=== PATIENT | female | born 1995 | race Caucasian/White ===

== ENCOUNTER 2018-09-10 10:46 | Outpatient (CLI) | payer BC | END 2018-09-10 12:46 | disposition home or self-care (01) | LOC: ECT 10:46 | DX: F33.2 Major depressive disorder, recurrent severe without psychotic features (principal); F41.0 Panic disorder [episodic paroxysmal anxiety]; F43.10 Post-traumatic stress disorder, unspecified; F34.1 Dysthymic disorder; Z98.84 Bariatric surgery status; Z79.899 Other long term (current) drug therapy; Z88.6 Allergy status to analgesic agent ==

== ENCOUNTER 2018-09-19 07:20 | Outpatient (RCR) | payer BC ==
[~2018-09-19] VITALS: Ht 172.1 cm; Wt 65.3 kg
[2018-09-19] MEDS ORDERED: Methohexital Sodium 500mg Vial IVP ONE ×2 (07:21)
[2018-09-19] MEDS ORDERED: Succinylcholine 20mg/ml 10ml vial ONE ×2 (07:21)
[2018-09-19] MEDS ORDERED: NS 500ML ONE ×2 (07:21)
[2018-09-19 10:13] VITALS: BP 124/86
[2018-09-19 10:27] VITALS: BP 135/85
[2018-09-19 10:32] VITALS: BP 142/72
[2018-09-19 10:37] VITALS: BP 130/88
[2018-09-19 10:42] VITALS: BP 126/78
[2018-09-19 12:00] VITALS: BP 124/86
[2018-09-21 07:37] VITALS: BP 123/88
[2018-09-21 07:55] VITALS: BP 132/71
[2018-09-21 08:00] VITALS: BP 123/72
[2018-09-21 08:05] VITALS: BP 116/74
[2018-09-21 08:10] VITALS: BP 117/70
[2018-09-24] MEDS ORDERED: Succinylcholine 20mg/ml 10ml vial ONE (08:00)
[2018-09-24] MEDS ORDERED: NS 500ML ONE (08:00)
[2018-09-24] MEDS ORDERED: Methohexital Sodium Syr 100mg/10ml IVP ONE (08:00)
[2018-09-24 08:03] VITALS: BP 123/88
[2018-09-24 08:15] VITALS: BP 134/89
[2018-09-24 08:20] VITALS: BP 125/71
[2018-09-24 08:24] VITALS: BP 127/75
[2018-09-24 08:30] VITALS: BP 122/67
[2018-09-26] MEDS ORDERED: NS 500ML ONE (06:00)
[2018-09-26] MEDS ORDERED: Succinylcholine 20mg/ml 10ml vial ONE (06:00)
[2018-09-26] MEDS ORDERED: Methohexital Sodium Syr 100mg/10ml IVP ONE (06:00)
[2018-09-26 07:11] VITALS: BP 128/89
[2018-09-26 07:30] VITALS: BP 138/82
[2018-09-26 07:35] VITALS: BP 122/80
[2018-09-26 07:40] VITALS: BP 130/77
[2018-09-26 07:45] VITALS: BP 129/75
[2018-09-28] MEDS ORDERED: Succinylcholine 20mg/ml 10ml vial ONE (07:00)
[2018-09-28] MEDS ORDERED: Methohexital Sodium Syr 100mg/10ml IVP ONE (07:00)
[2018-09-28] MEDS ORDERED: NS 500ML ONE (07:00)
[2018-09-28 07:46] VITALS: BP 124/83
[2018-09-28 08:00] VITALS: BP 145/88
[2018-09-28 08:05] VITALS: BP 114/79
[2018-09-28 08:10] VITALS: BP 113/75
[2018-09-28 08:15] VITALS: BP 113/72
[2018-10-01 07:20] VITALS: BP 117/83
[2018-10-01] MEDS ORDERED: HYDROcodone/Acetamin 5/325 tab ORAL PRN (07:31)
[2018-10-01 07:35] VITALS: BP 129/76
[2018-10-01 07:40] VITALS: BP 122/70
[2018-10-01 07:45] VITALS: BP 121/72
[2018-10-01 07:50] VITALS: BP 115/75
[2018-10-01] MEDS ORDERED: NS 500ML ONE (09:00)
[2018-10-01] MEDS ORDERED: Methohexital Sodium Syr 100mg/10ml IVP ONE (09:00)
[2018-10-01] MEDS ORDERED: HYDROcodone/Acetamin 5/325 tab ONE (09:00)
[2018-10-01] MEDS ORDERED: Succinylcholine 20mg/ml 10ml vial ONE (09:00)
[2018-10-03 08:33] VITALS: BP 114/79
[2018-10-03] MEDS ORDERED: HYDROcodone/Acetamin 5/325 tab ORAL PRN (08:46)
[2018-10-03 08:50] VITALS: BP 130/71
[2018-10-03 08:55] VITALS: BP 117/67
[2018-10-03 09:00] VITALS: BP 115/72
[2018-10-03] MEDS ORDERED: Succinylcholine 20mg/ml 10ml vial ONE (09:00)
[2018-10-03] MEDS ORDERED: HYDROcodone/Acetamin 5/325 tab ONE (09:00)
[2018-10-03] MEDS ORDERED: NS 500ML ONE (09:00)
[2018-10-03] MEDS ORDERED: Methohexital Sodium Syr 100mg/10ml IVP ONE (09:00)
[2018-10-03 09:05] VITALS: BP 108/74
[2018-10-05] MEDS ORDERED: Succinylcholine 20mg/ml 10ml vial ONE (09:00)
[2018-10-05] MEDS ORDERED: Methohexital Sodium Syr 100mg/10ml IVP ONE (09:00)
[2018-10-05] MEDS ORDERED: NS 500ML ONE (09:00)
[2018-10-05] MEDS ORDERED: HYDROcodone/Acetamin 5/325 tab ONE (09:00)
[2018-10-05 09:48] VITALS: BP 113/79
[2018-10-05] MEDS ORDERED: HYDROcodone/Acetamin 5/325 tab ORAL PRN (10:02)
[2018-10-05 10:05] VITALS: BP 125/72
[2018-10-05 10:10] VITALS: BP 124/74
[2018-10-05 10:15] VITALS: BP 126/63
[2018-10-05 10:20] VITALS: BP 122/74
== END 2018-10-07 | disposition home or self-care (01) ==
LOC: ECT 07:20
DX: F33.2 Major depressive disorder, recurrent severe without psychotic features (principal); F34.1 Dysthymic disorder; F41.0 Panic disorder [episodic paroxysmal anxiety]; F43.10 Post-traumatic stress disorder, unspecified; M71.9 Bursopathy, unspecified; J30.9 Allergic rhinitis, unspecified; R25.1 Tremor, unspecified; M51.27 Other intervertebral disc displacement, lumbosacral region; Z98.84 Bariatric surgery status; G58.9 Mononeuropathy, unspecified
CPT/HCPCS: 90870; J0330; J3490; J7040

== ENCOUNTER 2018-10-08 10:41 | Outpatient (RCR) | payer BC ==
[~2018-10-08] VITALS: Ht 172.1 cm; Wt 65.3 kg
[2018-10-08 08:49] VITALS: BP 118/83
[2018-10-08 09:00] VITALS: BP 136/95
[2018-10-08 09:05] VITALS: BP 127/71
[2018-10-08 09:10] VITALS: BP 114/66
[2018-10-08 09:15] VITALS: BP 122/71
[~2018-10-08 10:41] MED LIST: HYDROcodone/Acetamin 5/325 tab ONE; HYDROcodone/Acetamin 5/325 tab ORAL PRN; Methohexital Sodium Syr 100mg/10ml IVP ONE; NS 500ML ONE; Succinylcholine 20mg/ml 10ml vial ONE
[2018-10-10] MEDS ORDERED: Methohexital Sodium Syr 100mg/10ml IVP ONE (07:00)
[2018-10-10] MEDS ORDERED: NS 500ML ONE (07:00)
[2018-10-10] MEDS ORDERED: HYDROcodone/Acetamin 5/325 tab ONE (07:00)
[2018-10-10] MEDS ORDERED: Succinylcholine 20mg/ml 10ml vial ONE (07:00)
[2018-10-10 10:00] VITALS: BP 113/72
[2018-10-10] MEDS ORDERED: HYDROcodone/Acetamin 5/325 tab ORAL PRN (10:14)
[2018-10-10 10:15] VITALS: BP 129/68
[2018-10-10 10:20] VITALS: BP 123/67
[2018-10-10 10:25] VITALS: BP 113/58
[2018-10-10 10:30] VITALS: BP 115/64
[2018-10-12 08:28] VITALS: BP 104/76
[2018-10-12 08:45] VITALS: BP 114/64
[2018-10-12] MEDS ORDERED: HYDROcodone/Acetamin 5/325 tab ORAL PRN (08:45)
[2018-10-12 08:50] VITALS: BP 104/61
[2018-10-12 08:55] VITALS: BP 110/72
[2018-10-12 09:00] VITALS: BP 106/59
[2018-10-12] MEDS ORDERED: Succinylcholine 20mg/ml 10ml vial ONE (10:00)
[2018-10-12] MEDS ORDERED: Methohexital Sodium Syr 100mg/10ml IVP ONE (10:00)
[2018-10-12] MEDS ORDERED: HYDROcodone/Acetamin 5/325 tab ONE (10:00)
[2018-10-15] MEDS ORDERED: Succinylcholine 20mg/ml 10ml vial ONE (06:00)
[2018-10-15] MEDS ORDERED: NS 500ML ONE (06:00)
[2018-10-15] MEDS ORDERED: Methohexital Sodium Syr 100mg/10ml IVP ONE (06:00)
[2018-10-15] MEDS ORDERED: HYDROcodone/Acetamin 5/325 tab ONE (06:00)
[2018-10-15 08:19] VITALS: BP 117/79
[2018-10-15 08:30] VITALS: BP 142/78
[2018-10-15] MEDS ORDERED: HYDROcodone/Acetamin 5/325 tab ORAL PRN (08:30)
[2018-10-15 08:35] VITALS: BP 140/77
[2018-10-15 08:40] VITALS: BP 131/71
[2018-10-15 08:45] VITALS: BP 123/81
[2018-10-19] MEDS ORDERED: HYDROcodone/Acetamin 5/325 tab ONE (08:00)
[2018-10-19] MEDS ORDERED: NS 500ML ONE (08:00)
[2018-10-19] MEDS ORDERED: Succinylcholine 20mg/ml 10ml vial ONE (08:00)
[2018-10-19] MEDS ORDERED: Methohexital Sodium Syr 100mg/10ml IVP ONE (08:00)
[2018-10-19 08:31] VITALS: BP 107/73
[2018-10-19 08:42] VITALS: BP 118/81
[2018-10-19] MEDS ORDERED: HYDROcodone/Acetamin 5/325 tab ORAL PRN (08:42)
[2018-10-19 08:47] VITALS: BP 124/73
[2018-10-19 08:52] VITALS: BP 112/61
[2018-10-19 08:57] VITALS: BP 91/47
[2018-10-22] MEDS ORDERED: Succinylcholine 20mg/ml 10ml vial ONE (10:00)
[2018-10-22] MEDS ORDERED: HYDROcodone/Acetamin 5/325 tab ONE (10:00)
[2018-10-22] MEDS ORDERED: Methohexital Sodium Syr 100mg/10ml IVP ONE (10:00)
[2018-10-22] MEDS ORDERED: NS 500ML ONE (10:00)
[2018-10-22 10:29] VITALS: BP 119/79
[2018-10-22] MEDS ORDERED: HYDROcodone/Acetamin 5/325 tab ORAL PRN (10:42)
[2018-10-22 10:45] VITALS: BP 129/78
[2018-10-22 10:50] VITALS: BP 130/63
[2018-10-22 10:55] VITALS: BP 134/69
[2018-10-22 11:00] VITALS: BP 132/69
[2018-10-26] MEDS ORDERED: Succinylcholine 20mg/ml 10ml vial ONE (06:00)
[2018-10-26] MEDS ORDERED: HYDROcodone/Acetamin 5/325 tab ONE (06:00)
[2018-10-26] MEDS ORDERED: Methohexital Sodium Syr 100mg/10ml IVP ONE (06:00)
[2018-10-26] MEDS ORDERED: NS 500ML ONE (06:00)
[2018-10-26] MEDS ORDERED: HYDROcodone/Acetamin 5/325 tab ORAL PRN (08:29)
[2018-10-26 08:30] VITALS: BP_SYST 114; BP_SYST 154; BP_DIAS 103; BP_DIAS 74
[2018-10-26 08:35] VITALS: BP 147/91
[2018-10-26 08:40] VITALS: BP 111/69
[2018-10-26 08:45] VITALS: BP 114/68
[2018-10-31 08:32] VITALS: BP 119/76
[2018-10-31] MEDS ORDERED: HYDROcodone/Acetamin 5/325 tab ORAL PRN (08:45)
[2018-10-31 08:46] VITALS: BP 120/69
[2018-10-31 08:51] VITALS: BP 106/71
[2018-10-31 08:56] VITALS: BP 108/52
[2018-10-31] MEDS ORDERED: NS 500ML ONE (09:00)
[2018-10-31] MEDS ORDERED: HYDROcodone/Acetamin 5/325 tab ONE (09:00)
[2018-10-31] MEDS ORDERED: Methohexital Sodium Syr 100mg/10ml IVP ONE (09:00)
[2018-10-31] MEDS ORDERED: Succinylcholine 20mg/ml 10ml vial ONE (09:00)
[2018-10-31 09:01] VITALS: BP 108/73
[2018-11-07] MEDS ORDERED: HYDROcodone/Acetamin 5/325 tab ONE (06:00)
[2018-11-07] MEDS ORDERED: Methohexital Sodium Syr 100mg/10ml IVP ONE (06:00)
[2018-11-07] MEDS ORDERED: Succinylcholine 20mg/ml 10ml vial ONE (06:00)
[2018-11-07] MEDS ORDERED: NS 500ML ONE (06:00)
[2018-11-07 10:35] VITALS: BP 119/79
[2018-11-07] MEDS ORDERED: HYDROcodone/Acetamin 5/325 tab ORAL PRN (10:47)
[2018-11-07 10:50] VITALS: BP 124/65
[2018-11-07 10:55] VITALS: BP 120/63
[2018-11-07 11:00] VITALS: BP 118/65
[2018-11-07 11:05] VITALS: BP 110/65
== END 2018-11-07 | disposition home or self-care (01) ==
LOC: ECT 10:41
DX: F33.2 Major depressive disorder, recurrent severe without psychotic features (principal)
CPT/HCPCS: 90870; J0330; J7040

== ENCOUNTER 2018-11-12 08:01 | Outpatient (RCR) | payer BC ==
[~2018-11-12] VITALS: Ht 170.2 cm; Wt 65.3 kg
[~2018-11-12 08:01] MED LIST changes: -HYDROcodone/Acetamin 5/325 tab ORAL PRN
[2018-11-12] MEDS ORDERED: Succinylcholine 20mg/ml 10ml vial ONE (08:02)
[2018-11-12] MEDS ORDERED: Methohexital Sodium Syr 100mg/10ml IVP ONE (08:02)
[2018-11-12] MEDS ORDERED: NS 500ML ONE (08:02)
[2018-11-12] MEDS ORDERED: HYDROcodone/Acetamin 5/325 tab ONE (08:02)
[2018-11-12 11:01] VITALS: BP 110/69
[2018-11-12] MEDS ORDERED: HYDROcodone/Acetamin 5/325 tab ORAL PRN (11:13)
[2018-11-12 11:15] VITALS: BP 112/66
[2018-11-12 11:20] VITALS: BP 105/64
[2018-11-12 11:25] VITALS: BP 101/63
[2018-11-12 11:30] VITALS: BP 108/58
[2018-11-19] MEDS ORDERED: HYDROcodone/Acetamin 5/325 tab ONE (06:00)
[2018-11-19] MEDS ORDERED: NS 500ML ONE (06:00)
[2018-11-19] MEDS ORDERED: Methohexital Sodium Syr 100mg/10ml IVP ONE (06:00)
[2018-11-19] MEDS ORDERED: Succinylcholine 20mg/ml 10ml vial ONE (06:00)
[2018-11-19 07:57] VITALS: BP 114/76
[2018-11-19] MEDS ORDERED: HYDROcodone/Acetamin 5/325 tab ORAL PRN (08:09)
[2018-11-19 08:10] VITALS: BP 121/68
[2018-11-19 08:15] VITALS: BP 117/69
[2018-11-19 08:20] VITALS: BP 112/69
[2018-11-19 08:25] VITALS: BP 116/71
[2018-11-28 10:03] VITALS: BP 111/75
[2018-11-28] MEDS ORDERED: HYDROcodone/Acetamin 5/325 tab ORAL PRN (10:14)
[2018-11-28 10:15] VITALS: BP 120/73
[2018-11-28 10:20] VITALS: BP 120/66
[2018-11-28 10:25] VITALS: BP 121/64
[2018-11-28 10:30] VITALS: BP 121/67
[2018-12-07] MEDS ORDERED: Methohexital Sodium Syr 100mg/10ml IVP ONE (06:00)
[2018-12-07] MEDS ORDERED: HYDROcodone/Acetamin 5/325 tab ONE (06:00)
[2018-12-07] MEDS ORDERED: Succinylcholine 20mg/ml 10ml vial ONE (06:00)
[2018-12-07] MEDS ORDERED: NS 500ML ONE (06:00)
[2018-12-07 08:49] VITALS: BP 112/70
[2018-12-07] MEDS ORDERED: HYDROcodone/Acetamin 5/325 tab ORAL PRN (09:06)
[2018-12-07 09:10] VITALS: BP 110/63
[2018-12-07 09:15] VITALS: BP 105/59
[2018-12-07 09:20] VITALS: BP 107/53
[2018-12-07 09:25] VITALS: BP 112/66
== END 2018-12-08 | disposition home or self-care (01) ==
LOC: ECT 08:01
DX: F33.2 Major depressive disorder, recurrent severe without psychotic features (principal)
CPT/HCPCS: 90870; J0330; J7040

== ENCOUNTER 2018-12-17 05:12 | Outpatient (RCR) | payer BC ==
[~2018-12-17] VITALS: Ht 170.2 cm; Wt 65.3 kg
[2018-12-17] MEDS ORDERED: Methohexital Sodium Syr 100mg/10ml IVP ONE (06:00)
[2018-12-17] MEDS ORDERED: Succinylcholine 20mg/ml 10ml vial ONE (06:00)
[2018-12-17] MEDS ORDERED: NS 500ML ONE (06:00)
[2018-12-17] MEDS ORDERED: HYDROcodone/Acetamin 5/325 tab ONE (06:00)
[2018-12-17 08:24] VITALS: BP 113/72
[2018-12-17 08:35] VITALS: BP 121/63
[2018-12-17] MEDS ORDERED: HYDROcodone/Acetamin 5/325 tab ORAL PRN (08:35)
[2018-12-17 08:40] VITALS: BP 116/62
[2018-12-17 08:45] VITALS: BP 110/58
[2018-12-17 08:50] VITALS: BP 105/72
[2018-12-31] MEDS ORDERED: Succinylcholine 20mg/ml 10ml vial ONE (06:00)
[2018-12-31] MEDS ORDERED: NS 500ML ONE (06:00)
[2018-12-31] MEDS ORDERED: Methohexital Sodium Syr 100mg/10ml IVP ONE (06:00)
[2018-12-31] MEDS ORDERED: HYDROcodone/Acetamin 5/325 tab ONE (06:00)
[2018-12-31 08:31] VITALS: BP 109/77
[2018-12-31] MEDS ORDERED: HYDROcodone/Acetamin 5/325 tab ORAL PRN (08:47)
[2018-12-31 08:50] VITALS: BP 109/77
[2018-12-31 08:55] VITALS: BP 109/77
[2018-12-31 09:00] VITALS: BP 109/77
[2018-12-31 09:05] VITALS: BP 110/69
== END 2019-01-07 | disposition home or self-care (01) ==
LOC: ECT 05:12
DX: F33.2 Major depressive disorder, recurrent severe without psychotic features (principal)
CPT/HCPCS: 90870; J0330; J7040

== ENCOUNTER 2019-01-14 12:19 | Outpatient (RCR) | payer BC ==
[~2019-01-14] VITALS: Ht 172 cm; Wt 65.3 kg
[2019-01-14 10:14] VITALS: BP 110/79
[2019-01-14 10:30] VITALS: BP 120/45
[2019-01-14 10:35] VITALS: BP 119/68
[2019-01-14 10:40] VITALS: BP 123/67
[2019-01-14 10:45] VITALS: BP 111/65
[~2019-01-14 12:19] MED LIST changes: -HYDROcodone/Acetamin 5/325 tab ONE; +HYDROcodone/Acetamin 5/325 tab ORAL PRN; -Methohexital Sodium Syr 100mg/10ml IVP ONE; -NS 500ML ONE; -Succinylcholine 20mg/ml 10ml vial ONE
[2019-01-14] MEDS ORDERED: Methohexital Sodium Syr 100mg/10ml IVP ONE (12:20)
[2019-01-14] MEDS ORDERED: HYDROcodone/Acetamin 5/325 tab ONE (12:20)
[2019-01-30] MEDS ORDERED: NS 500ML ONE (06:00)
[2019-01-30] MEDS ORDERED: HYDROcodone/Acetamin 5/325 tab ONE (06:00)
[2019-01-30] MEDS ORDERED: Methohexital Sodium Syr 100mg/10ml IVP ONE (06:00)
[2019-01-30] MEDS ORDERED: Succinylcholine 20mg/ml 10ml vial ONE (06:00)
[2019-01-30 10:23] VITALS: BP 110/62
[2019-01-30 10:35] VITALS: BP 116/53
[2019-01-30] MEDS ORDERED: HYDROcodone/Acetamin 5/325 tab ORAL PRN (10:35)
[2019-01-30 10:40] VITALS: BP 115/63
[2019-01-30 10:45] VITALS: BP 115/69
[2019-01-30 10:50] VITALS: BP 119/64
== END 2019-02-07 | disposition home or self-care (01) ==
LOC: ECT 12:19
DX: F33.2 Major depressive disorder, recurrent severe without psychotic features (principal)
CPT/HCPCS: 90870; J0330; J7040

== ENCOUNTER 2019-02-08 08:37 | Outpatient (RCR) | payer BC ==
[~2019-02-08] VITALS: Ht 170.2 cm; Wt 65.3 kg
[2019-02-08 08:00] VITALS: BP 116/69
[2019-02-08 08:15] VITALS: BP 115/66
[2019-02-08 08:20] VITALS: BP 110/63
[2019-02-08 08:25] VITALS: BP 109/66
[2019-02-08 08:30] VITALS: BP 113/65
[2019-02-08] MEDS ORDERED: NS 500ML ONE (08:38)
[2019-02-08] MEDS ORDERED: Methohexital Sodium Syr 100mg/10ml IVP ONE (08:38)
[2019-02-08] MEDS ORDERED: Succinylcholine 20mg/ml 10ml vial ONE (08:38)
[2019-02-08] MEDS ORDERED: HYDROcodone/Acetamin 5/325 tab ONE (08:38)
[2019-02-20] MEDS ORDERED: Methohexital Sodium Syr 100mg/10ml IVP ONE (06:00)
[2019-02-20] MEDS ORDERED: NS 500ML ONE (06:00)
[2019-02-20] MEDS ORDERED: Succinylcholine 20mg/ml 10ml vial ONE (06:00)
[2019-02-20] MEDS ORDERED: HYDROcodone/Acetamin 5/325 tab ONE (06:00)
[2019-02-20 08:48] VITALS: BP 113/70
[2019-02-20] MEDS ORDERED: HYDROcodone/Acetamin 5/325 tab ORAL PRN (09:03)
[2019-02-20 09:05] VITALS: BP 114/63
[2019-02-20 09:10] VITALS: BP 117/58
[2019-02-20 09:15] VITALS: BP 115/58
[2019-02-20 09:20] VITALS: BP 114/58
[2019-03-06 07:43] VITALS: BP 115/79
[2019-03-06] MEDS ORDERED: HYDROcodone/Acetamin 5/325 tab ORAL PRN (07:56)
[2019-03-06 08:00] VITALS: BP 118/66
[2019-03-06 08:05] VITALS: BP 111/57
[2019-03-06 08:10] VITALS: BP 112/68
[2019-03-06 08:15] VITALS: BP 117/62
[2019-03-06] MEDS ORDERED: HYDROcodone/Acetamin 5/325 tab ONE (09:00)
[2019-03-06] MEDS ORDERED: Succinylcholine 20mg/ml 10ml vial ONE (09:00)
[2019-03-06] MEDS ORDERED: Methohexital Sodium Syr 100mg/10ml IVP ONE (09:00)
[2019-03-06] MEDS ORDERED: NS 500ML ONE (09:00)
== END 2019-03-09 | disposition home or self-care (01) ==
LOC: ECT 08:37
DX: F33.2 Major depressive disorder, recurrent severe without psychotic features (principal)
CPT/HCPCS: 90870; J0330; J7040

== ENCOUNTER 2019-03-22 08:02 | Outpatient (RCR) | payer BC ==
[~2019-03-22] VITALS: Ht 172.1 cm; Wt 65.3 kg
[2019-03-22] MEDS ORDERED: Succinylcholine 20mg/ml 10ml vial ONE (08:03)
[2019-03-22] MEDS ORDERED: HYDROcodone/Acetamin 5/325 tab ONE (08:03)
[2019-03-22] MEDS ORDERED: Methohexital Sodium 500mg Vial IVP ONE (08:03)
[2019-03-22] MEDS ORDERED: NS 500ML ONE (08:03)
[2019-03-22 08:30] VITALS: BP 109/79
[2019-03-22] MEDS ORDERED: HYDROcodone/Acetamin 5/325 tab ORAL PRN (08:42)
[2019-03-22 08:45] VITALS: BP 130/78
[2019-03-22 08:50] VITALS: BP 118/66
[2019-03-22 08:55] VITALS: BP 115/70
[2019-03-22 09:00] VITALS: BP 120/63
[2019-04-08] MEDS ORDERED: HYDROcodone/Acetamin 5/325 tab ONE (08:00)
[2019-04-08] MEDS ORDERED: Succinylcholine 20mg/ml 10ml vial ONE (08:00)
[2019-04-08] MEDS ORDERED: Methohexital Sodium Syr 100mg/10ml IVP ONE (08:00)
[2019-04-08] MEDS ORDERED: NS 500ML ONE (08:00)
[2019-04-08 08:39] VITALS: BP 119/90
[2019-04-08 08:51] VITALS: BP 141/71
[2019-04-08] MEDS ORDERED: HYDROcodone/Acetamin 5/325 tab ORAL PRN (08:51)
[2019-04-08 08:57] VITALS: BP 127/75
[2019-04-08 09:01] VITALS: BP 118/72
[2019-04-08 09:06] VITALS: BP 117/55
== END 2019-04-09 | disposition home or self-care (01) ==
LOC: ECT 08:02
DX: F33.2 Major depressive disorder, recurrent severe without psychotic features (principal)
CPT/HCPCS: 90870; J3490

== ENCOUNTER 2019-05-15 05:20 | Outpatient (RCR) | payer BC ==
[~2019-05-15] VITALS: Ht 172 cm; Wt 65.3 kg
[2019-05-29] MEDS ORDERED: HYDROcodone/Acetamin 5/325 tab ONE (06:00)
[2019-05-29] MEDS ORDERED: NS 500ML ONE (06:00)
[2019-05-29] MEDS ORDERED: Methohexital Sodium Syr 100mg/10ml IVP ONE (06:00)
[2019-05-29] MEDS ORDERED: Succinylcholine 20mg/ml 10ml vial ONE (06:00)
[2019-05-29 09:24] VITALS: BP 122/88
[2019-05-29] MEDS ORDERED: HYDROcodone/Acetamin 5/325 tab ORAL PRN (09:25)
[2019-05-29 09:35] VITALS: BP 131/85
[2019-05-29 09:40] VITALS: BP 121/63
[2019-05-29 09:45] VITALS: BP 116/71
[2019-05-29 09:50] VITALS: BP 117/58
== END 2019-06-08 | disposition home or self-care (01) ==
LOC: ECT 05:20
DX: F33.2 Major depressive disorder, recurrent severe without psychotic features (principal)
CPT/HCPCS: 90870; J0330; J7040

== ENCOUNTER 2019-06-19 05:40 | Outpatient (RCR) | payer BC ==
[~2019-06-19] VITALS: Ht 170.2 cm; Wt 65.3 kg
[2019-06-19] MEDS ORDERED: HYDROcodone/Acetamin 5/325 tab ONE (05:41)
[2019-06-19] MEDS ORDERED: Succinylcholine 20mg/ml 10ml vial ONE (05:41)
[2019-06-19] MEDS ORDERED: Methohexital Sodium Syr 100mg/10ml IVP ONE (05:41)
[2019-06-19] MEDS ORDERED: NS 500ML ONE (05:41)
[2019-06-19 09:00] VITALS: BP 126/85
[2019-06-19] MEDS ORDERED: HYDROcodone/Acetamin 5/325 tab ORAL PRN (09:11)
[2019-06-19 09:15] VITALS: BP 136/47
[2019-06-19 09:20] VITALS: BP 129/67
[2019-06-19 09:25] VITALS: BP 122/57
[2019-06-19 09:30] VITALS: BP 118/71
[2019-07-03] MEDS ORDERED: Methohexital Sodium Syr 100mg/10ml IVP ONE (08:00)
[2019-07-03] MEDS ORDERED: NS 500ML ONE (08:00)
[2019-07-03] MEDS ORDERED: Succinylcholine 20mg/ml 10ml vial ONE (08:00)
[2019-07-03] MEDS ORDERED: HYDROcodone/Acetamin 5/325 tab ONE (08:00)
[2019-07-03 10:13] VITALS: BP 125/79
[2019-07-03] MEDS ORDERED: HYDROcodone/Acetamin 5/325 tab ORAL PRN (10:33)
[2019-07-03 10:35] VITALS: BP 108/58
[2019-07-03 10:40] VITALS: BP 109/58
[2019-07-03 10:45] VITALS: BP 103/57
[2019-07-03 10:50] VITALS: BP 103/58
== END 2019-07-09 | disposition home or self-care (01) ==
LOC: ECT 05:40
DX: F33.2 Major depressive disorder, recurrent severe without psychotic features (principal)
CPT/HCPCS: 90870; J0330; J7040

== ENCOUNTER 2019-07-10 06:07 | Outpatient (RCR) | payer BC ==
[~2019-07-10] VITALS: Ht 170.2 cm; Wt 65.3 kg
[2019-07-10] MEDS ORDERED: Succinylcholine 20mg/ml 10ml vial ONE (06:08)
[2019-07-10] MEDS ORDERED: HYDROcodone/Acetamin 5/325 tab ONE (06:08)
[2019-07-10] MEDS ORDERED: Methohexital Sodium Syr 100mg/10ml IVP ONE (06:08)
[2019-07-10] MEDS ORDERED: NS 500ML ONE (06:08)
[2019-07-10 08:23] VITALS: BP 115/81
[2019-07-10] MEDS ORDERED: HYDROcodone/Acetamin 5/325 tab ORAL PRN (08:37)
[2019-07-10 08:40] VITALS: BP 115/81
[2019-07-10 08:45] VITALS: BP 112/65
[2019-07-10 08:50] VITALS: BP 113/65
[2019-07-10 08:55] VITALS: BP 112/61
[2019-07-24] MEDS ORDERED: Methohexital Sodium Syr 100mg/10ml IVP ONE (08:00)
[2019-07-24] MEDS ORDERED: Succinylcholine 20mg/ml 10ml vial ONE (08:00)
[2019-07-24] MEDS ORDERED: NS 500ML ONE (08:00)
[2019-07-24] MEDS ORDERED: HYDROcodone/Acetamin 5/325 tab ONE (08:00)
[2019-07-24 08:14] VITALS: BP 117/84
[2019-07-24] MEDS ORDERED: HYDROcodone/Acetamin 5/325 tab ORAL PRN (08:27)
[2019-07-24 08:30] VITALS: BP 113/67
[2019-07-24 08:35] VITALS: BP 126/67
[2019-07-24 08:40] VITALS: BP 116/70
[2019-07-24 08:45] VITALS: BP 115/74
[2019-07-31] MEDS ORDERED: Methohexital Sodium Syr 100mg/10ml IVP ONE (06:00)
[2019-07-31] MEDS ORDERED: NS 500ML ONE (06:00)
[2019-07-31] MEDS ORDERED: HYDROcodone/Acetamin 5/325 tab ONE (06:00)
[2019-07-31] MEDS ORDERED: Succinylcholine 20mg/ml 10ml vial ONE (06:00)
[2019-07-31 08:33] VITALS: BP 107/64
[2019-07-31] MEDS ORDERED: HYDROcodone/Acetamin 5/325 tab ORAL PRN (08:46)
[2019-07-31 08:50] VITALS: BP 110/57
[2019-07-31 08:55] VITALS: BP 103/56
[2019-07-31 09:00] VITALS: BP 103/53
[2019-07-31 09:05] VITALS: BP 94/57
== END 2019-08-08 | disposition home or self-care (01) ==
LOC: ECT 06:07
DX: F33.2 Major depressive disorder, recurrent severe without psychotic features (principal)
CPT/HCPCS: 90870; J0330; J7040

== ENCOUNTER 2019-08-14 06:31 | Outpatient (RCR) | payer BC ==
[~2019-08-14] VITALS: Ht 170.2 cm; Wt 65.3 kg
[2019-08-14] MEDS ORDERED: HYDROcodone/Acetamin 5/325 tab ONE ×2 (06:32)
[2019-08-14] MEDS ORDERED: Succinylcholine 20mg/ml 10ml vial ONE ×2 (06:32)
[2019-08-14] MEDS ORDERED: Methohexital Sodium Syr 100mg/10ml IVP ONE ×2 (06:32)
[2019-08-14] MEDS ORDERED: NS 500ML ONE ×2 (06:32)
[2019-08-14 08:51] VITALS: BP 115/78
[2019-08-14] MEDS ORDERED: HYDROcodone/Acetamin 5/325 tab ORAL PRN (09:06)
[2019-08-14 09:07] VITALS: BP 115/78
[2019-08-14 09:12] VITALS: BP 119/62
[2019-08-14 09:17] VITALS: BP 105/66
[2019-08-14 09:22] VITALS: BP 106/60
[2019-08-28 09:39] VITALS: BP 116/78
[2019-08-28] MEDS ORDERED: HYDROcodone/Acetamin 5/325 tab ORAL PRN (09:59)
[2019-08-28] MEDS ORDERED: Lidocaine 2% 100mg/5ml Carp IV PRN (09:59)
[2019-08-28] MEDS ORDERED: Atropine Sulfate 0.4mg/ml inj IVP PRN (09:59)
[2019-08-28 10:03] VITALS: BP 114/59
[2019-08-28 10:08] VITALS: BP 105/63
[2019-08-28 10:13] VITALS: BP 110/61
[2019-08-28 10:18] VITALS: BP 111/59
== END 2019-09-08 | disposition home or self-care (01) ==
LOC: ECT 06:31
DX: F33.2 Major depressive disorder, recurrent severe without psychotic features (principal)
CPT/HCPCS: 90870; J0330; J7040

== ENCOUNTER 2019-09-16 05:14 | Outpatient (RCR) | payer BC ==
[~2019-09-16] VITALS: Ht 172.1 cm; Wt 65.3 kg
[2019-09-16] MEDS ORDERED: Succinylcholine 20mg/ml 10ml vial ONE (06:00)
[2019-09-16] MEDS ORDERED: HYDROcodone/Acetamin 5/325 tab ONE (06:00)
[2019-09-16] MEDS ORDERED: NS 500ML ONE (06:00)
[2019-09-16] MEDS ORDERED: Methohexital Sodium Syr 100mg/10ml IVP ONE (06:00)
[2019-09-16 10:13] VITALS: BP 134/82
[2019-09-16] MEDS ORDERED: HYDROcodone/Acetamin 5/325 tab ORAL PRN (10:13)
[2019-09-16 10:18] VITALS: BP 125/63
[2019-09-16 10:23] VITALS: BP 116/73
[2019-09-16 10:28] VITALS: BP 121/72
[2019-10-02] MEDS ORDERED: Methohexital Sodium Syr 100mg/10ml IVP ONE (06:00)
[2019-10-02] MEDS ORDERED: Succinylcholine 20mg/ml 10ml vial ONE (06:00)
[2019-10-02] MEDS ORDERED: NS 500ML ONE (06:00)
[2019-10-02] MEDS ORDERED: HYDROcodone/Acetamin 5/325 tab ONE (06:00)
[2019-10-02 09:08] VITALS: BP 119/83
[2019-10-02] MEDS ORDERED: Atropine Sulfate 0.4mg/ml inj IVP PRN (09:29)
[2019-10-02] MEDS ORDERED: Lidocaine 2% 100mg/5ml Carp IV PRN (09:29)
[2019-10-02] MEDS ORDERED: HYDROcodone/Acetamin 5/325 tab ORAL PRN (09:29)
[2019-10-02 09:30] VITALS: BP 108/52
[2019-10-02 09:35] VITALS: BP 110/63
[2019-10-02 09:40] VITALS: BP 113/54
[2019-10-02 09:45] VITALS: BP 111/64
== END 2019-10-08 | disposition home or self-care (01) ==
LOC: ECT 05:14
DX: F33.2 Major depressive disorder, recurrent severe without psychotic features (principal)
CPT/HCPCS: 90870; J0330; J7040

== ENCOUNTER 2019-10-23 04:42 | Outpatient (RCR) | payer BC ==
[~2019-10-23] VITALS: Ht 170.2 cm; Wt 65.3 kg
[2019-10-23] MEDS ORDERED: Succinylcholine 20mg/ml 10ml vial ONE (04:43)
[2019-10-23] MEDS ORDERED: NS 500ML ONE (04:43)
[2019-10-23] MEDS ORDERED: HYDROcodone/Acetamin 5/325 tab ONE (04:43)
[2019-10-23] MEDS ORDERED: Methohexital Sodium Syr 100mg/10ml IVP ONE (04:43)
[2019-10-23 08:49] VITALS: BP 128/91
[2019-10-23] MEDS ORDERED: HYDROcodone/Acetamin 5/325 tab ORAL PRN (09:00)
[2019-10-23 09:01] VITALS: BP 128/78
[2019-10-23 09:06] VITALS: BP 123/69
[2019-10-23 09:11] VITALS: BP 117/70
[2019-10-23 09:16] VITALS: BP 118/70
== END 2019-11-08 | disposition home or self-care (01) ==
LOC: ECT 04:42
DX: F33.2 Major depressive disorder, recurrent severe without psychotic features (principal)
CPT/HCPCS: 90870; J0330; J7040

== ENCOUNTER 2019-11-13 05:04 | Outpatient (RCR) | payer BC ==
[2019-11-13] VITALS (7 sets, daily range): BP systolic 108–141; BP diastolic 50–89
[~2019-11-13] VITALS: Ht 172.1 cm; Wt 65.3 kg
[2019-11-13] MEDS ORDERED: Succinylcholine 20mg/ml 10ml vial ONE (06:00)
[2019-11-13] MEDS ORDERED: HYDROcodone/Acetamin 5/325 tab ONE (06:00)
[2019-11-13] MEDS ORDERED: NS 500ML ONE (06:00)
[2019-11-13] MEDS ORDERED: Methohexital Sodium Syr 100mg/10ml IVP ONE (06:00)
[2019-11-13] MEDS ORDERED: Atropine Sulfate 0.4mg/ml inj IVP PRN (09:09)
[2019-11-13] MEDS ORDERED: HYDROcodone/Acetamin 5/325 tab ORAL PRN (09:09)
[2019-11-13] MEDS ORDERED: Lidocaine 2% 100mg/5ml Carp IV PRN (09:09)
[2019-12-04] VITALS (7 sets, daily range): BP systolic 106–119; BP diastolic 52–90
[2019-12-04] MEDS ORDERED: HYDROcodone/Acetamin 5/325 tab ONE (07:00)
[2019-12-04] MEDS ORDERED: Methohexital Sodium Syr 100mg/10ml IVP ONE (07:00)
[2019-12-04] MEDS ORDERED: Succinylcholine 20mg/ml 10ml vial ONE (07:00)
[2019-12-04] MEDS ORDERED: NS 500ML ONE (07:00)
[2019-12-04] MEDS ORDERED: Atropine Sulfate 0.4mg/ml inj IVP PRN (08:44)
[2019-12-04] MEDS ORDERED: HYDROcodone/Acetamin 5/325 tab ORAL PRN (08:44)
== END 2019-12-09 | disposition home or self-care (01) ==
LOC: ECT 05:04
DX: F33.2 Major depressive disorder, recurrent severe without psychotic features (principal)
CPT/HCPCS: 90870; J0330; J7040

== ENCOUNTER 2019-12-25 06:07 | Outpatient (RCR) | payer BC ==
[2019-12-25] VITALS (7 sets, daily range): BP systolic 104–125; BP diastolic 49–87
[~2019-12-25] VITALS: Ht 30.5 cm; Wt 0.5 kg
[2019-12-25] MEDS ORDERED: Methohexita Syr 100mg/10ml IVP ONE (06:08)
[2019-12-25] MEDS ORDERED: NS 500ML ONE (06:08)
[2019-12-25] MEDS ORDERED: Succinylcholine 20mg/ml 10ml vial ONE (06:08)
[2019-12-25] MEDS ORDERED: HYDROcodone/Acetamin 5/325 tab ONE (06:08)
[2019-12-25] MEDS ORDERED: HYDROcodone/Acetamin 5/325 tab ORAL PRN (08:49)
== END 2020-01-08 | disposition home or self-care (01) ==
LOC: ECT 06:07
DX: F33.2 Major depressive disorder, recurrent severe without psychotic features (principal)
CPT/HCPCS: 90870; J0330; J7040

== ENCOUNTER 2020-01-17 04:35 | Outpatient (RCR) | payer BC ==
[~2020-01-17] VITALS: Ht 170.2 cm; Wt 65.3 kg
[2020-01-24] VITALS (7 sets, daily range): BP systolic 106–118; BP diastolic 62–83
[2020-01-24] MEDS ORDERED: Methohexital Sodium Syr 100mg/10ml IVP ONE (09:00)
[2020-01-24] MEDS ORDERED: Succinylcholine 20mg/ml 10ml vial ONE (09:00)
[2020-01-24] MEDS ORDERED: HYDROcodone/Acetamin 5/325 tab ONE (09:00)
[2020-01-24] MEDS ORDERED: NS 500ML ONE (09:00)
[2020-01-24] MEDS ORDERED: HYDROcodone/Acetamin 5/325 tab ORAL PRN (11:31)
== END 2020-02-08 | disposition home or self-care (01) ==
LOC: ECT 04:35
DX: F33.2 Major depressive disorder, recurrent severe without psychotic features (principal)
CPT/HCPCS: 90870; J0330; J7040

== ENCOUNTER 2020-02-21 04:48 | Outpatient (RCR) | payer BC ==
[~2020-02-21] VITALS: Ht 30.5 cm; Wt 0.5 kg
[2020-02-21] MEDS ORDERED: NS 500ML ONE (04:49)
[2020-02-21] MEDS ORDERED: Succinylcholine 20mg/ml 10ml vial ONE (04:49)
[2020-02-21] MEDS ORDERED: HYDROcodone/Acetamin 5/325 tab ONE (04:49)
[2020-02-21] MEDS ORDERED: Methohexita Syr 100mg/10ml IVP ONE (04:49)
[2020-02-21] MEDS ORDERED: HYDROcodone/Acetamin 5/325 tab ORAL PRN (09:14)
[2020-02-21 09:15] VITALS: BP 129/64
[2020-02-21 09:20] VITALS: BP 116/65
[2020-02-21 09:25] VITALS: BP 118/69
[2020-02-21 09:30] VITALS: BP 123/61
[2020-02-21 09:35] VITALS: BP 140/43
[2020-02-21 09:40] VITALS: BP 109/78
== END 2020-03-09 | disposition home or self-care (01) ==
LOC: ECT 04:48
DX: F33.2 Major depressive disorder, recurrent severe without psychotic features (principal)
CPT/HCPCS: 90870; J0330; J7040

== ENCOUNTER 2020-03-20 07:24 | Outpatient (RCR) | payer BC ==
[~2020-03-20] VITALS: Ht 30.5 cm; Wt 0.5 kg
[2020-03-20] VITALS (7 sets, daily range): BP systolic 109–144; BP diastolic 58–88
[2020-03-20] MEDS ORDERED: HYDROcodone/Acetamin 5/325 tab ONE (07:25)
[2020-03-20] MEDS ORDERED: NS 500ML ONE (07:25)
[2020-03-20] MEDS ORDERED: Succinylcholine 20mg/ml 10ml vial ONE (07:25)
[2020-03-20] MEDS ORDERED: Methohexita Syr 100mg/10ml IVP ONE (07:25)
[2020-03-20] MEDS ORDERED: HYDROcodone/Acetamin 5/325 tab ORAL PRN (09:18)
== END 2020-04-09 | disposition home or self-care (01) ==
LOC: ECT 07:24
DX: F33.2 Major depressive disorder, recurrent severe without psychotic features (principal)
CPT/HCPCS: 90870; J0330; J7040

== ENCOUNTER 2020-04-17 05:12 | Outpatient (RCR) | payer BC ==
[2020-04-17] VITALS (7 sets, daily range): BP systolic 105–154; BP diastolic 53–89
[~2020-04-17] VITALS: Ht 172.1 cm; Wt 65.3 kg
[2020-04-17] MEDS ORDERED: NS 500ML ONE (05:13)
[2020-04-17] MEDS ORDERED: Methohexita Syr 100mg/10ml IVP ONE (05:13)
[2020-04-17] MEDS ORDERED: Succinylcholine 20mg/ml 10ml vial ONE (05:13)
[2020-04-17] MEDS ORDERED: HYDROcodone/Acetamin 5/325 tab ONE (05:13)
[2020-04-17] MEDS ORDERED: HYDROcodone/Acetamin 5/325 tab ORAL PRN (09:33)
== END 2020-05-10 | disposition home or self-care (01) ==
LOC: ECT 05:12
DX: F33.2 Major depressive disorder, recurrent severe without psychotic features (principal)
CPT/HCPCS: 90870; J0330; J7040

== ENCOUNTER 2020-05-11 05:11 | Outpatient (RCR) | payer BC ==
[2020-05-11] VITALS (7 sets, daily range): BP systolic 107–126; BP diastolic 70–89
[~2020-05-11] VITALS: Ht 172.1 cm; Wt 65.3 kg
[2020-05-11] MEDS ORDERED: HYDROcodone/Acetamin 5/325 tab ONE (05:12)
[2020-05-11] MEDS ORDERED: NS 500ML ONE (05:12)
[2020-05-11] MEDS ORDERED: Methohexita Syr 100mg/10ml IVP ONE (05:12)
[2020-05-11] MEDS ORDERED: Succinylcholine 20mg/ml 10ml vial ONE (05:12)
[2020-05-11] MEDS ORDERED: Lidocaine 2% 100mg/5ml Carp IV PRN (08:54)
[2020-05-11] MEDS ORDERED: Atropine Sulfate 0.4mg/ml inj IVP PRN (08:54)
[2020-06-01] VITALS (7 sets, daily range): BP systolic 121–138; BP diastolic 51–93
[2020-06-01] MEDS ORDERED: HYDROcodone/Acetamin 5/325 tab ONE (06:00)
[2020-06-01] MEDS ORDERED: Succinylcholine 20mg/ml 10ml vial ONE (06:00)
[2020-06-01] MEDS ORDERED: NS 500ML ONE (06:00)
[2020-06-01] MEDS ORDERED: Methohexita Syr 100mg/10ml IVP ONE (06:00)
[2020-06-01] MEDS ORDERED: HYDROcodone/Acetamin 5/325 tab ORAL PRN (09:23)
== END 2020-06-07 | disposition home or self-care (01) ==
LOC: ECT 05:11
DX: F33.2 Major depressive disorder, recurrent severe without psychotic features (principal)
CPT/HCPCS: 90870; J0330; J7040